=== PATIENT | female | born 1950 | race African-American/Black ===

== ENCOUNTER 2018-09-16 00:08 | Emergency (ER) | payer OTHER ==
[~2018-09-16] VITALS: Ht 172.7 cm; Wt 75.0 kg
[2018-09-16 02:25] LABS: BASOPHILS % 0.3 % (0.0-2.0); HEMATOCRIT. 36.4 % (36.0-48.0); HEMOGLOBIN. 12.3 g/dL (12.0-16.0); LYMPHOCYTES % 13.5 % (20.0-50.0); MEAN CORPUSCULAR HEMOGLOBIN 28.7 pg (28.0-32.0); MEAN CORPUSCULAR VOLUME 84.7 fL (81.0-99.0); MEAN PLATELET VOLUME 7.6 fl (7.4-10.4); MONOCYTES % 6.1 % (2.0-8.0); NEUTROPHILS % 80.1 % (40.0-76.0); PLATELET 299 x1000/uL (130-400); RED CELL DISTRIBUTION WIDTH 14.6 % (11.6-14.6)
[2018-09-16 02:28] LABS: CHLORIDE 102 mEq/L (98-107)
[2018-09-16 02:30] LABS: INR 1.1; PARTIAL THROMBOPLASTIN TIME 28.7 sec (23.4-31.0); PROTHROMBIN TIME 10.6 sec (9.1-11.1)
[2018-09-16 05:54] VITALS: BP 119/53
[2018-09-16] MEDS ORDERED: IOHEXOL-300 100 ML BOTTLE ONE (07:09)
== END 2018-09-16 06:07 | disposition home or self-care (01) ==
LOC: ER 04:38
DX: S30.1XXA Contusion of abdominal wall, initial encounter (principal); R07.89 Other chest pain; M25.572 Pain in left ankle and joints of left foot; M25.571 Pain in right ankle and joints of right foot; E11.9 Type 2 diabetes mellitus without complications; V49.88XA Car occupant (driver) (passenger) injured in other specified transport accidents, initial encounter; Y93.89 Activity, other specified; Y92.89 Other specified places as the place of occurrence of the external cause; Y99.8 Other external cause status
CPT/HCPCS: 36415; 71045; 71260; 73090; 73610; 74177; 80053; 84484; 85025; 85610; 85730; 93005; 99284; Q9967